=== PATIENT | female | born 1935 | race Caucasian/White ===

== ENCOUNTER 2017-06-10 06:12 | Day surgery (SDC) | payer OTHER, BC ==
[2017-05-29 10:05] VITALS: BMI 25.2
--- NOTE | 2017-06-05 10:14 | HP ---
[facility]ellite [facility] - Chief Complaint Chief Complaint: left knee pain - Past Medical History Allergies/Adverse Reactions: Allergies Allergy/AdvReac Type Severity Reaction Status Date / Time adhesive tape Allergy Severe Rash Verified 05/29/17 09:47 amlodipine besylate Allergy Severe Difficulty Verified 05/29/17 09:47 [From Norvasc] Breathing epinephrine Allergy Severe Difficulty Verified 05/29/17 09:47 [From Xylocaine-Epinephrine] Breathing hexachlorophene Allergy Severe Swelling Verified 05/29/17 09:47 [From Phisohex] iodine Allergy Severe Swelling Verified 05/29/17 09:47 lidocaine HCl Allergy Severe Difficulty Verified 05/29/17 09:47 [From Xylocaine-Epinephrine] Breathing lisinopril [From Zestril] Allergy Severe Difficulty Verified 05/29/17 09:47 Breathing Penicillins Allergy Severe Difficulty Verified 05/29/17 09:47 Breathing Sulfa (Sulfonamide Allergy Severe Difficulty Verified 05/29/17 09:47 Antibiotics) Breathing - Current Medications Current Medications: Home Medications Medication Instructions Recorded Aspirin [ASA -] 81 mg PO DAILY 05/29/17 B-Complex with Vitamin C [Super B 1 each PO DAILY 05/29/17 Complex-Vitamin C] Clonidine HCl 0.1 mg PO DAILY PRN 05/29/17 Clonidine Patch [Catapres Tts 0.2 mg TD WEEKLY 05/29/17 Patch -] Garlic [Garlic X] 400 mg PO BID 05/29/17 [place]-3/Dha/Epa/Lut/Zeaxanthin 1 each PO DAILY 05/29/17 [[facility] Softgel] Telmisartan 20 mg PO BID 05/29/17 Satellite Physical Exam - Physical Examination General Appearance: Well Nourished, Well Developed, Alert & Oriented x3 ENT: Clear Lung: Normal air movement Heart: Regular rate & rhythm Extremities: Other (left knee- + swelling, + ttp medially, decr rom, nvi xrays show grade 4 medial djd) Neurological: Intact, Alert, Oriented Satellite Impression/Plan - Impression/Plan Impression: left knee medial djd Operative Procedure: left medial marisela ukr Date to be Performed: 06/10/17
[2017-06-10] MEDS ORDERED: CELECOXIB 200 MG CAPSULE PO ONE (06:32)
[2017-06-10] MEDS ORDERED: TRANEXAMIC ACID 1000 MG/10 ML VIAL IVPUSH ONE (06:32)
[2017-06-10] MEDS ORDERED: ROPIVICAINE 0.2%/MORPH PF/KETOROLAC - 51ML DISP.SYRINGE IA ONE ×2 (06:32→08:30)
[2017-06-10] MEDS ORDERED: CEFAZOLIN 1 GM/D5W 1 GRAM/50 ML BAG IVPB ONE (06:32)
[2017-06-10] MEDS ORDERED: GABAPENTIN 300 MG CAPSULE (FP) PO ONE (06:32)
[2017-06-10] MEDS ORDERED: CELECOXIB 200 MG CAPSULE ONE (06:34)
[2017-06-10] MEDS ORDERED: MIDAZOLAM HCL 2 MG/2 ML SINGLE DOSE VIAL ONE (06:52)
[2017-06-10] MEDS ORDERED: DEXAMETHASONE SOD PHOSPHATE/PF 10 MG/ML SDV ONE (06:52)
[2017-06-10] MEDS ORDERED: SODIUM CHLORIDE 0.9% P/F 10 ML VIAL IJ ONE (06:52)
[2017-06-10] MEDS ORDERED: ROPIVACAINE HCL 0.5% 30ML VIAL ONE (06:52)
[2017-06-10] MEDS ORDERED: BUPIVACAINE HCL/PF 0.5% (5MG/ML) 10 ML VIAL ONE (06:53)
[2017-06-10] MEDS ORDERED: THROMBIN (BOVINE) 5,000 UNIT VIAL TP ONE ×2 (07:18→08:30)
[2017-06-10] MEDS ORDERED: PROPOFOL 20 ML ONE ×3 (08:16)
[2017-06-10] MEDS ORDERED: ceFAZolin SODIUM 1 GM VIAL ONE (08:20)
[2017-06-10] MEDS ORDERED: DEXAMETHASONE SOD PHOSPHATE 4 MG/1 ML VIAL ONE (08:20)
[2017-06-10] MEDS ORDERED: ONDANSETRON 4 MG/2 ML VIAL ONE (08:20)
[2017-06-10] MEDS ORDERED: BACITRACIN 50,000 UNITS VIAL NR ONE (08:30)
[2017-06-10] MEDS ORDERED: GELATIN, ABSORBABLE 100 EACH SPONGE TP ONE (08:30)
[2017-06-10] MEDS ORDERED: oxyCODONE HCL 5 MG TABLET PO PRN ×2 (10:08)
[2017-06-10] MEDS ORDERED: ONDANSETRON 4 MG/2 ML VIAL IVPUSH PRN ×2 (10:08→10:29)
[2017-06-10] MEDS ORDERED: PROMETHAZINE HCL 25 MG/1 ML VIAL IVPUSH PRN (10:08)
[2017-06-10] MEDS ORDERED: LACTATED RINGERS SOLUTION 1,000 ML IV SCH ×2 (10:15→10:30)
--- NOTE | 2017-06-10 10:18 | OP ---
Operative Note - Note: Operative Date: 06/10/17 Pre-Operative Diagnosis: DJD LEFT KNEE Operation: LEFT MEDIAL UNICOMPARTMENTAL KNEE REPLACEMENT AND PATELLAPLASTY Post-Operative Diagnosis: Same as Pre-op Surgeon: Yung Landis Anesthesia: Spinal Estimated Blood Loss (mls): 0 Operative Report Dictated: Yes
[2017-06-10] MEDS ORDERED: MAG HYDROX/AL HYDROX/SIMETH 30 ML UNIT-DOSE CUP PO PRN (10:29)
--- NOTE | 2017-06-10 10:29 | SURG ---
Surgery Psychology Assistant Note Psychology Assistant: Jovan Rios PA-C Date of Service: 06/10/17 Diagnosis: DJD LEFT KNEE Procedure: LEFT MEDIAL UNICOMPARTMENTAL KNEE REPLACEMENT AND PATELLAPLASTY I was present for the entirety of the operative procedure. For further detail, please refer to operative report. Visit type - Case Type Case Type: Scheduled Admission - New patient This patient is new to me today: Yes Date on this admission: 06/10/17
--- NOTE | 2017-06-10 11:07 | SPEC ---
DATE OF OPERATION: 06/10/2017 PREOPERATIVE DIAGNOSIS: Degenerative joint disease, left knee. POSTOPERATIVE DIAGNOSIS: Degenerative joint disease, left knee. PROCEDURE: Left medial unicompartmental knee replacement with robotic-assisted navigation (MAKOplasty) and patelloplasty. SURGICAL ATTENDING: Yung Landis MD [employer] INSTALLER: AZAM Zamudio ANESTHESIA: Spinal and regional. CLOSURE: Medial SAHARA components with 5 femur, 6 tibia, 9 polyethylene; No. 1 Vicryl, fascia; 0 and 2-0, subcutaneous; 3-0 Monocryl subcuticular with skin glue for skin; 4-0 undyed Vicryl for pin sites. ESTIMATED BLOOD LOSS: Negligible. COMPLICATIONS: None. CONDITION: To recovery in stable condition. DESCRIPTION OF OPERATIVE PROCEDURE: Patient was taken to the operating room on June 10, 2017. Spinal and regional anesthesia was administered by the anesthesiologist. IV Kefzol and TXA were administered prophylactically prior to the case. A well-padded pneumatic tourniquet was placed on the left proximal thigh. The left lower extremity was prepped and draped in the usual sterile fashion. A 6- to 8-cm longitudinal incision over the medial side of the patella from mid patella to the tibial tubercle was incised and was deepened using Bovie cautery. An arthrotomy was then made just medial to the patellar tendon and the patella. Subperiosteal dissection was done on the anteromedial proximal tibia all the way back to the MCL. Partial fat pad excision was performed, exposing the medial compartment. Checkpoint was malleable at both the femur and the tibia. Using 2 stab incisions in the femur 1 handbreadth above the patella on the femur and 2 stab incisions 1 handbreadth below the tibial tubercle on the tibia, 2 threaded pins were drilled in parallel fashion from anterior to posterior, going through the proximal cortex and engaging the 2nd but not through the 2nd cortex. To these threaded pins were fastened navigation rays, 1 on the femur and 1 on the tibia. The knee was then registered with the navigation device with the center of the rotation of the hip, medial and lateral malleoli, and multiple points both on the femur and on the tibia. Excellent registration of less than 0.5 mm was obtained on both to ensure adequate registration. The navigation device ensured us to "pop the bubbles" both on the femur and the tibia and that was performed and passed registration. The knee was then thoroughly inspected to remove all osteophytes both on the femur and the tibia. Also, osteophytes on the trochlea and on the surface of the patella were removed as well. The knee was then stressed with valgus stress at 0, 30, 60, 90, and 120 degrees of flexion. This propagated a looseness/tightness graft. The virtual positions of the components were then optimized to ensure an excellent graft. The tracking also was optimized by manipulating the virtual position to ensure that the femoral component articulated with the central portion of the tibial component. The robot was then brought into the field and was registered. The robot was used to bur the bone on both the femur and the tibia as to the specifications of the components. The trial components were then applied on both the femur and the tibia with an appropriate polyethylene insert. The knee was taken through a range of motion and found to have full extension, full flexion, with excellent stability. Stressing the graft revealed an excellent looseness/tightness graft with the trial components in place. The trial components were removed. The knee was thoroughly irrigated with a copious amount of antibiotic irrigation. The real components were then cemented in using modern generation cement techniques with antibiotic cement and pressurization. After the cement was hardened, the knee was thoroughly inspected to remove out all excess cement. The real polyethylene insert was then clipped into place. Range of motion and stability were again assessed to be as they were with the trials. At this time, the pins and the checkpoints were removed. The knee was again thoroughly irrigated. The arthrotomy was closed with No. 1 Vicryl, 0 and 2-0 subcutaneous, and 3-0 Monocryl subcuticular with skin glue for the skin, 4-0 undyed Vicryl for the pin sites. Sterile pressure dressing was placed over the knee. Patient awakened from anesthesia and transferred to recovery in stable condition. No complications. Estimated blood loss negligible. X-rays postoperatively revealed excellent position of the components. Jaswinder [id number]
[2017-06-10] MEDS: ACETAMINOPHEN 325 MG TABLET (FP) PO SCH ×4 (11:55→23:40)
[2017-06-10] MEDS: CEFAZOLIN 1 GM/D5W 1 GRAM/50 ML BAG IVPB SCH ×2 (15:40→23:53)
[2017-06-10] MEDS ORDERED: cloNIDine HCL 0.1 MG TABLET PO PRN (20:18)
[2017-06-10] MEDS ORDERED: GABAPENTIN 300 MG CAPSULE (FP) PO SCH (22:00)
[2017-06-10] MEDS: SENNOSIDES/DOCUSATE COMBO (SENNA PLUS) TABLET (UD) PO SCH (22:05)
[2017-06-10] MEDS: oxyCODONE HCL 10 MG SUSTAINED ACTING TABLET PO SCH (22:06)
[2017-06-10] MEDS: GABAPENTIN 300 MG CAPSULE (FP) PO SCH (22:06)
[2017-06-11] MEDS: ACETAMINOPHEN 325 MG TABLET (FP) PO SCH ×2 (06:43→11:42)
[2017-06-11 06:50] VITALS: BP 155/67; PULSE 66; TEMP 98.4
[2017-06-11] MEDS ORDERED: ASPIRIN 325 MG TABLET PO SCH (08:00)
[2017-06-11 08:33] LABS: ANION GAP 7 (8-16); BLOOD UREA NITROGEN 23 mg/dl (7-18); CALCIUM 9.1 mg/dl (8.4-10.2); CHLORIDE 101 mmol/L (98-107); CO2 26 mmol/L (22-28); CREATININE 0.7 mg/dl (0.6-1.3); GLUCOSE,RANDOM 117 mg/dl (74-106); POTASSIUM 4.5 mmol/L (3.5-5.1); SODIUM 134 mmol/L (136-145)
[2017-06-11] MEDS: SENNOSIDES/DOCUSATE COMBO (SENNA PLUS) TABLET (UD) PO SCH (09:12)
[2017-06-11] MEDS: GABAPENTIN 300 MG CAPSULE (FP) PO SCH (09:12)
[2017-06-11] MEDS: oxyCODONE HCL 10 MG SUSTAINED ACTING TABLET PO SCH (09:13)
[2017-06-11] MEDS ORDERED: VALSARTAN 160 MG TABLET (UD) PO SCH (10:00)
[2017-06-11] MEDS ORDERED: MULTIVITAMINS (DAILY MVI) TABLET (FP) PO SCH (10:00)
[2017-06-11] MEDS ORDERED: PANTOPRAZOLE 40 MG TABLET (FP) PO SCH (10:00)
--- NOTE | 2017-06-11 10:00 | PN ---
Progress Note (short form) - Note Progress Note: 82F POD1 s/p left medial makoplasty under spinal anesthetic with peripheral nerve blocks doing well. Pt states that pain is well controlled, reports no anesthetic complications. Sensory and motor function is intact in bilateral lower extremities.
== END 2017-06-11 13:10 | disposition home health service (06) ==
LOC: FASU 06:12 → FM/S 12:30 → FASU 06-11 13:10
PROVIDERS: ATTEND Orthopaedic Surgery
PROC: 8E0YXBZ Computer Assisted Procedure of Lower Extremity (ICD-10-PCS; 2017-06-10)
PROC: 8E0Y0CZ Robotic Assisted Procedure of Lower Extremity, Open Approach (ICD-10-PCS; 2017-06-10)
PROC: 0SRD0L9 Replacement of Left Knee Joint with Medial Unicondylar Synthetic Substitute, Cemented, Open Approach (ICD-10-PCS; principal; 2017-06-10 08:30)
DX: M17.12 Unilateral primary osteoarthritis, left knee (principal)
CPT/HCPCS: 20985; 27446; C1776; S2900; 36415; 73560-TC-LT; 80048; 94010; 94760; 97116-GP; 97162-GP